=== PATIENT | female | born 1970 | race Caucasian/White ===

== ENCOUNTER → 2016-07-14 | Outpatient (CLI) | payer OTHER ==
[~2016-07-14] MED LIST: ALBU1AER9 INH; ASCO10003 PO; ASPI-435 PO; B-CO1CAP17 PO; BECL0.072 INH; BETA2500 PO; CHOL1TAB42 PO; FEXO1TAB46 PO; IBUP-103 PO; MNC100 PO; MONT1TAB3 PO; NITR-5 PO; NXM/40 PO; PRLSR20 PO; QVRINH80; RANI300T2 PO; SENNTAB23 PO; SPIR25TA PO; SPIR50TA2 PO; VITA10004 PO; VNTHFA/IN INH; [UNRECOGNIZED DRUG - OTHER] PO; vitamin d PO
--- NOTE | 2016-07-14 16:45 | DIAGNOSTIC IMAGING REPORT ---
PA CHEST RADIOGRAPH AND UPRIGHT AND SUPINE AP RADIOGRAPHS OF THE ABDOMEN CLINICAL HISTORY: Right upper quadrant abdominal pain. COMPARISON STUDY: Chest radiograph April 01, [address] of the abdomen and pelvis September 23, 2014. FINDINGS: Lung volumes are normal. Lungs are clear. There is no pneumothorax or pleural effusion. Cardiac size is normal. Mediastinal contours are normal. There is no free air. The bowel gas pattern is normal. There is a mild to moderate amount of stool within the colon. IMPRESSION: 1. No free air or evidence of bowel obstruction. 2. No acute cardiopulmonary findings. Electronically signed by: Mack Hawkins M.D. 07/14/2016 4:44 PM Dictated Date/Time: 07/14/2016 4:40 PM
== END | disposition home or self-care (01) ==
LOC: C.RADPV 16:11
PROVIDERS: ATTEND Family Medicine
DX: R10.11 Right upper quadrant pain (principal)

== ENCOUNTER 2016-07-17 11:37 | Emergency (ER) | payer OTHER ==
[~2016-07-17] VITALS: Ht 165.1 cm; Wt 100.9 kg
[~2016-07-17 11:37] MED LIST changes: -ASPI-435 PO; -CHOL1TAB42 PO; -FEXO1TAB46 PO; -IBUP-103 PO; -MONT1TAB3 PO; -NITR-5 PO; -PRLSR20 PO; -QVRINH80; -RANI300T2 PO; -SENNTAB23 PO; -SPIR25TA PO; -SPIR50TA2 PO; -VITA10004 PO; -VNTHFA/IN INH
[2016-07-17 11:40] VITALS: Ht 165.1 cm; Wt 100.9 kg
[2016-07-17] MEDS ORDERED: QVRINH80 (12:01)
[2016-07-17] MEDS ORDERED: VNTHFA/IN INH (12:01)
[2016-07-17] MEDS ORDERED: SPIR50TA2 PO (12:03)
[2016-07-17] MEDS ORDERED: SPIR25TA PO (12:03)
[2016-07-17] MEDS ORDERED: MONT1TAB3 PO (12:03)
[2016-07-17] MEDS ORDERED: FEXO1TAB46 PO (12:03)
[2016-07-17] MEDS ORDERED: RANI300T2 PO (12:03)
[2016-07-17] MEDS ORDERED: VITA10004 PO (12:03)
[2016-07-17] MEDS ORDERED: ASPI-435 PO (12:03)
[2016-07-17 12:25] LABS: URINE APPEARANCE CLEAR (CLEAR); URINE BILIRUBIN NEG (NEG); URINE COLOR YELLOW; URINE EPITHELIAL CELL AUTO 20-30 /lpf (0-5); URINE NITRITE NEG (NEG); URINE PH 5.5 (4.5-7.5); URINE SPECIFIC GRAVITY 1.024 (1.000-1.030); UROBILINOGEN NEG (NEG); ZZUR CULT IF INDIC CLEAN CATCH NO
[2016-07-17 12:29] LABS: MANUAL MICROSCOPIC REQUIRED? NO; REVIEW REQ? NO
[2016-07-17] MEDS ORDERED: ONDANSETRON INJ 2 MG/ML 2 ML VIAL IV STA (12:34)
[2016-07-17] MEDS ORDERED: OPTIRAY 320 IV PRN (12:45)
[2016-07-17 14:03] LABS: ALT/SGPT 18 U/L (12-78); AST/SGOT 9 U/L (15-37); BLOOD UREA NITROGEN 11 mg/dl (7-18); BUN/CREATININE RATIO 15.3 (10-20); CALCIUM 8.9 mg/dl (8.5-10.1); CARBON DIOXIDE 32 mmol/L (21-32); CHLORIDE 105 mmol/L (98-107); CREATININE 0.73 mg/dl (0.60-1.20); GLUCOSE 129 mg/dl (70-99); POTASSIUM 4.1 mmol/L (3.5-5.1); SODIUM 140 mmol/L (136-145)
[2016-07-17 14:06] LABS: ALKALINE PHOSPHATASE 102 U/L (45-117)
[2016-07-17 14:14] LABS: HEMATOCRIT 38.4 % (37-47); MEAN CELL VOLUME 89.3 fL (80-100); MEAN CORPUSCULAR HEMOGLOBIN 31.2 pg (25-34); MEAN CORPUSCULAR HGB CONC 34.9 g/dl (32-36); MEAN PLATELET VOLUME 9.7 fL (7.4-10.4); PLATELET COUNT 288 K/uL (130-400); WHITE BLOOD COUNT 10.78 K/uL (4.8-10.8)
[2016-07-17 14:37] LABS: BASOPHIL % 0.9 %; COMPLETE YES; EOSINOPHIL % 1.7 %; LYMPH ABS # 2.16 K/uL (1.2-3.4); NEUTROPHILS % 74.8 %
--- NOTE | 2016-07-17 15:40 | DIAGNOSTIC IMAGING REPORT ---
CT ABD/PELVIS IV AND ORAL CONT CLINICAL HISTORY: Right-sided abdominal pain. COMPARISON STUDY: 09/23/2014 TECHNIQUE: Following the IV administration of 118 mL of Optiray-320, CT scan of the abdomen and pelvis was performed from the lung bases to the proximal femurs. Images are reviewed in the axial, sagittal, and coronal planes. IV contrast was administered without complication. CT DOSE: 821.68 mGy.cm FINDINGS: Lower chest: There are minor basilar atelectatic changes. Liver: There is mild hepatic steatosis. No focal masses are visualized. The portal vein appears patent. Gallbladder: Unremarkable. Spleen: Normal in size and attenuation. Pancreas: Unremarkable. Adrenal glands: Unremarkable. Kidneys: There is symmetric renal cortical enhancement. The kidneys are normal in size without hydronephrosis. Bowel: There are no transition zones indicate bowel obstruction. The proximal appendix appears normal. The distal appendix is borderline dilated measuring 7 mm, but there are no periappendiceal inflammatory changes.. There is no acute diverticulitis. Peritoneum: There is no intraperitoneal free air or abdominal ascites. This tiny fat-containing umbilical hernia Vasculature: The abdominal aorta is normal in course and caliber. Adenopathy: None. Pelvic viscera: The uterus appears surgically absent Skeletal structures: No destructive osseous lesions are seen. IMPRESSION: 1. No evidence of bowel obstruction. No evidence of free air 2. No evidence of acute diverticulitis 3. The proximal appendix appears normal. There is borderline dilatation of the distal appendix which measures 7 mm. There are no periappendiceal inflammatory changes. This likely represents a normal variation. Close clinical follow-up is recommended. Electronically signed by: Bhaskar Underwood M.D. 07/17/2016 3:38 PM Dictated Date/Time: 07/17/2016 3:30 PM
[2016-07-17] MEDS ORDERED: NITR-5 PO (16:15)
[2016-07-17 16:29] VITALS: BP 131/72; PULSE 68; TEMP 36.7; O2SAT 96
--- NOTE | 2016-07-17 18:23 | EMERGENCY ROOM VISIT NOTE ---
History Report prepared by Gunnar: Serenity Garcia Under the Supervision of: Dr. Jas Morgan M.D. First contact with patient: 12:23 Chief Complaint: URINARY SYMPTOMS Stated Complaint: BACK PAIN,BURNING AND FREQUENT URINATION Nursing Triage Summary: Pt states. "I had a urine culture on Tue. I am having low back pain. I am having urinary freq and burning. [facility] sent me here for a kidney stones work up. My UA showed blood and three kinds of bacteria." + hx of kidney stones. Pain worse in left flank. Nausea. States initially went to PCP on Tue for "reflux". History of Present Illness The patient is a 46 year old female who presents to the Emergency Room with complaints of persistent urinary symptoms for the past 2 days. She reports for the past 3 weeks she has experienced RUQ abdominal pain and constipation. She also noticed that when she would eat something, she would burp and whatever she ate, would "come back up", similar to acid reflux. She states the constipation was unusual for her as she normally has no problem moving her bowels daily. The patient still has her gallbladder and appendix. She no longer gets her menstrual period. She saw her primary care physician at [facility] 2 days ago for the reflux type symptoms and states she had an abdominal X -Ray that showed mild constipation. She also had a urinalysis that showed " trace blood". Her bowels eventually began moving again, but she notes the consistency of her stool is "runny". The patient reports the same day she saw her doctor, she started experiencing some low back pain. She does not think she' s had a fever but reports last night she felt "hot all over". Last night, her symptoms also worsened and she developed some pain on urination with frequency and urgency, so she called her doctor this morning and was referred to the ED for a possible kidney stone. The patient admits to a history of kidney stones but states she is unsure if her current pain feels similar to a stone. She admits to some nausea but has not vomited. 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 A total of 10 systems reviewed and were otherwise negative. Past Medical & Surgical Medical Problems: (1) Asthma (2) TMJ surgery Family History Cancer Diabetes mellitus Kidney disease Kidney stones Social History Smoking Status: Never Smoker Alcohol Use: none Drug Use: none Marital Status: Housing Status: lives with family Occupation Status: employed Current/Historical Medications Scheduled Albuterol Hfa (Ventolin Hfa), 2-4 PUFFS INH Q6H Aspirin (Aspirin 81), 81 MG PO DAILY Fexofenadine Hcl (Geri), 180 MG PO DAILY Montelukast Sodium (Singulair), 10 MG PO DAILY Nitrofurantoin Monohyd Macrocr (Macrobid), 100 MG PO BID Ranitidine (Zantac), 300 MG PO DAILY Spironolactone (Aldactone), 50 MG PO QAM Spironolactone (Aldactone), 25 MG PO QPM Vitamin E (Vitamin E), 5,000 MG PO DAILY Miscellaneous Medications Beclomethasone Dip (Qvar) Allergies Coded Allergies: Meloxicam (Verified Allergy, Intermediate, SHORTNESS OF BREATH, 07/17/16) Paroxetine (Verified Allergy, Intermediate, SHORTNESS OF BREATH, 07/17/16) Physical Exam Vital Signs Date Time Temp Pulse Resp B/P Pulse Ox O2 Delivery O2 Flow Rate FiO2 07/17/16 16:29 36.7 68 16 131/72 96 07/17/16 16:29 68 16 131/72 96 Room Air 07/17/16 15:47 74 16 126/68 96 Room Air 07/17/16 13:50 64 16 136/86 97 Room Air 07/17/16 11:40 36.7 76 18 148/83 96 Room Air Physical Exam Constitutional: Vital signs reviewed. Eyes: Pupils are equal round reactive to light. Conjunctiva are noninjected. ENT: Pharynx is clear without erythema or exudate. Mucous membranes are moist. Neck supple without meningeal signs. Respiratory: Clear to auscultation bilaterally. Breath sounds are equal bilaterally. Cardiovascular: Regular rate and rhythm. No rubs or gallops. GI: Soft, nondistended. Right suprapubic lower abdominal tenderness, no guarding. Bowel sounds are present. Musculoskeletal: No peripheral edema. No lower extremity tenderness. No CVA tenderness. Integumentary: No cyanosis. Neurological: The patient is awake and alert. No focal deficits. Psychiatric: Normal affect. Medical Decision & Procedures ER Provider Diagnostic Interpretation: This CT scan was reviewed and interpreted by the radiologist and reviewed by myself. CT ABD/PELVIS IV AND ORAL CONT CLINICAL HISTORY: Right-sided abdominal pain. COMPARISON STUDY: 09/23/2014 TECHNIQUE: Following the IV administration of 118 mL of Optiray-320, CT scan of the abdomen and pelvis was performed from the lung bases to the proximal femurs. Images are reviewed in the axial, sagittal, and coronal planes. IV contrast was administered without complication. CT DOSE: 821.68 mGy.cm FINDINGS: Lower chest: There are minor basilar atelectatic changes. Liver: There is mild hepatic steatosis. No focal masses are visualized. The portal vein appears patent. Gallbladder: Unremarkable. Spleen: Normal in size and attenuation. Pancreas: Unremarkable. Adrenal glands: Unremarkable. Kidneys: There is symmetric renal cortical enhancement. The kidneys are normal in size without hydronephrosis. Bowel: There are no transition zones indicate bowel obstruction. The proximal appendix appears normal. The distal appendix is borderline dilated measuring 7 mm, but there are no periappendiceal inflammatory changes.. There is no acute diverticulitis. Peritoneum: There is no intraperitoneal free air or abdominal ascites. This tiny fat-containing umbilical hernia Vasculature: The abdominal aorta is normal in course and caliber. Adenopathy: None. Pelvic viscera: The uterus appears surgically absent Skeletal structures: No destructive osseous lesions are seen. IMPRESSION: 1. No evidence of bowel obstruction. No evidence of free air 2. No evidence of acute diverticulitis 3. The proximal appendix appears normal. There is borderline dilatation of the distal appendix which measures 7 mm. There are no periappendiceal inflammatory changes. This likely represents a normal variation. Close clinical follow-up is recommended. Electronically signed by: Bhaskar Underwood M.D. 07/17/2016 3:38 PM Laboratory Results 07/17/16 13:50 Red Blood Count 4.30, Mean Corpuscular Volume 89.3, Mean Corpuscular Hemoglobin 31.2, Mean Corpuscular Hemoglobin Concent 34.9, Mean Platelet Volume 9.7 07/17/16 13:15 Test 07/17/16 11:49 07/17/16 13:15 07/17/16 13:50 Urine Color YELLOW Urine Appearance CLEAR (CLEAR) Urine pH 5.5 (4.5-7.5) Urine Specific [place] 1.024 (1.000-1.030) Urine Protein NEG (NEG) Urine Glucose (UA) NEG (NEG) Urine Ketones NEG (NEG) Urine Occult Blood NEG (NEG) Urine Nitrite NEG (NEG) Urine Bilirubin NEG (NEG) Urine Urobilinogen NEG (NEG) Urine Leukocyte Esterase NEG (NEG) Urine WBC (Auto) 1-5 /hpf (0-5) Urine RBC (Auto) 0-4 /hpf (0-4) Urine Hyaline Casts (Auto) 0 /lpf (0-5) Urine Epithelial Cells (Auto) 20-30 /lpf (0-5) Urine Bacteria (Auto) NEG (NEG) Anion Gap 3.0 mmol/L (3-11) Est Creatinine Clear Calc Drug Dose 112.1 ml/min Estimated GFR () 113.7 Estimated GFR (Non- 98.1 BUN/Creatinine Ratio 15.3 (10-20) Calcium Level 8.9 mg/dl (8.5-10.1) Total Bilirubin 0.2 mg/dl (0.2-1) Direct Bilirubin < 0.1 mg/dl (0-0.2) Aspartate Amino Transf (AST/SGOT) 9 U/L (15-37) Alanine Aminotransferase (ALT/SGPT) 18 U/L (12-78) Alkaline Phosphatase 102 U/L (45-117) Total Protein 7.1 gm/dl (6.4-8.2) Albumin 3.8 gm/dl (3.4-5.0) Lipase 147 U/L (73-393) White Blood Count 10.78 K/uL (4.8-10.8) Red Blood Count 4.30 M/uL (4.2-5.4) Hemoglobin 13.4 g/dL (12.0-16.0) Hematocrit 38.4 % (37-47) Mean Corpuscular Volume 89.3 fL (80-100) Mean Corpuscular Hemoglobin 31.2 pg (25-34) Mean Corpuscular Hemoglobin Concent 34.9 g/dl (32-36) Platelet Count 288 K/uL (130-400) Mean Platelet Volume 9.7 fL (7.4-10.4) RDW Standard Deviation 40.7 fL (36.4-46.3) RDW Coefficient of Variation 12.7 % (11.5-14.5) Neutrophils % (Manual) 74.8 % Lymphocytes % (Manual) 20.0 % Monocytes % (Manual) 2.6 % Eosinophils % (Manual) 1.7 % Basophils % (Manual) 0.9 % Neutrophils # (Manual) 8.06 K/uL (1.4-6.5) Total Absolute Neutrophils 8.06 K/uL (1.4-6.5) Lymphocytes # (Manual) 2.16 K/uL (1.2-3.4) Total Absolute Lymphocytes 2.16 K/uL (1.2-3.4) Monocytes # (Manual) 0.28 K/uL (0.11-0.59) Eosinophils # (Manual) 0.18 K/uL (0-0.5) Basophils # (Manual) 0.10 K/uL (0-0.2) Red Blood Cell Morphology Unremarkable Laboratory results as reviewed by me. Medications Administered Medications (Trade) Dose Ordered Sig/Malou Route Start Time Stop Time Status Last Admin Dose Admin Ondansetron HCl (Zofran Inj) 4 mg NOW STAT IV 07/17/16 12:34 07/17/16 12:35 DC 07/17/16 12:52 4 MG ED Course 1224: The patient was evaluated in room A12. A complete history and physical exam was performed. 1234: Zofran 4 mg IV. 1428: I reevaluated the patient. I let her know her test results. 1610: I reevaluated the patient. She says her pain is mostly in the upper area of her abdomen on her right side. She has no RLQ tenderness to suggest acute appendicitis. I recommended follow up with GI and antibiotic treatment for dysuria. I discussed her other discharge instructions and she verbalized complete understanding and agreement. Medical Decision This is a 46-year-old female who presents with urinary symptoms and abdominal pain. Differential diagnosis includes UTI, pyelonephritis, diverticulitis, appendicitis, colitis, irritable bowel syndrome. I did perform a limited focused review of portions of the patient's old chart on the electronic medical record. The patient had a urine culture on July 14, 2016 that was negative. An X -Ray of the chest and abdomen was unremarkable. I did evaluate the patient as noted above. The patient has had abdominal pain for the past 3 weeks. She states the pain was mostly in the right upper quadrant and left lower quadrant. She does have some suprapubic tenderness and slight right sided tenderness on exam. She also complains of dysuria starting last night. IV access was established. I did order and personally review the patient's urinalysis as described above. I did send a urine culture because her symptoms. I did order and review the patient's blood work as noted in the electronic medical record. She has slight elevation of her white blood cell count but otherwise her labs are unremarkable. I did order a CT of the abdomen and pelvis. I did review the images myself as well as the radiology report as described above. There was some distal dilation of the appendix but no evidence of appendicitis. I did reevaluate the patient. She states that she has some pain in the right upper quadrant but no significant pain in the lower abdomen. She has no tenderness at McBurney's point. Given her symptoms have been going on for 3 weeks and just that she has no pain or tenderness in the right lower quadrant at this time, I feel it unlikely that she has appendicitis. I did discuss the test results with her. The cause of her pain is unclear and it did recommend follow up with her doctor as well as possible referral to gastroenterology. She has had significant dysuria so despite her negative UA and will treat her empirically with antibiotics. She was discharged with a prescription for Macrobid and given return instructions as outlined below. Impression Primary Impression: RUQ abdominal pain Additional Impressions: Suprapubic abdominal pain Dysuria Scribe Attestation The scribe's documentation has been prepared under my direct and personally reviewed by me in its entirety. I confirm that the note above accurately reflects all work, treatment, procedures, and medical decision making performed by me. Departure Information Dispostion Home / Self-Care Prescriptions Nitrofurantoin Monohyd Macrocr (Macrobid) 100 Mg Cap 100 MG PO BID, #14 CAP Prov: Jas Morgan M.D. 07/17/16 Referrals Marjan Kuhn M.D. (PCP) Patient Instructions [facility] Problem Qualifiers
== END 2016-07-17 16:31 | disposition home or self-care (01) ==
LOC: C.EDB 11:39 → C.EDA 16:31
DX: R10.11 Right upper quadrant pain (principal); R10.30 Lower abdominal pain, unspecified; R33.9 Retention of urine, unspecified; R30.0 Dysuria; J45.909 Unspecified asthma, uncomplicated; Z80.9 Family history of malignant neoplasm, unspecified; Z83.3 Family history of diabetes mellitus; Z84.1 Family history of disorders of kidney and ureter; Z79.82 Long term (current) use of aspirin; Z79.899 Other long term (current) drug therapy

== ENCOUNTER → 2016-08-14 | Outpatient (CLI) | payer OTHER ==
[~2016-08-14] MED LIST changes: -ALBU1AER9 INH; -ASCO10003 PO; +ASPI-435 PO; -B-CO1CAP17 PO; -BECL0.072 INH; -BETA2500 PO; +CHOL1TAB42 PO; +FEXO1TAB46 PO; +IBUP-103 PO; -MNC100 PO; +MONT1TAB3 PO; +NITR-5 PO; -NXM/40 PO; +PRLSR20 PO; +QVRINH80; +RANI300T2 PO; +SENNTAB23 PO; +SPIR25TA PO; +SPIR50TA2 PO; +VITA10004 PO; +VNTHFA/IN INH; -[UNRECOGNIZED DRUG - OTHER] PO; -vitamin d PO
[2016-08-14 13:09] LABS: BASO % 0.5 %; BASO ABS # 0.05 K/uL (0-0.2); COMPLETE YES; EOS % 3.3 %; HEMATOCRIT 41.5 % (37-47); IG% 0.5 %; LYMPH % 23.5 %; LYMPH ABS # 2.41 K/uL (1.2-3.4); MEAN CELL VOLUME 91.8 fL (80-100); MEAN CORPUSCULAR HEMOGLOBIN 30.1 pg (25-34); MEAN CORPUSCULAR HGB CONC 32.8 g/dl (32-36); MEAN PLATELET VOLUME 10.5 fL (7.4-10.4); MONO % 4.9 %; NEUT % 67.3 %; PLATELET COUNT 308 K/uL (130-400); RED BLOOD COUNT 4.52 M/uL (4.2-5.4); WHITE BLOOD COUNT 10.24 K/uL (4.8-10.8)
[2016-08-14 13:28] LABS: BLOOD UREA NITROGEN 14 mg/dl (7-18); BUN/CREATININE RATIO 16.6 (10-20); CALCIUM 8.7 mg/dl (8.5-10.1); CARBON DIOXIDE 27 mmol/L (21-32); CHLORIDE 106 mmol/L (98-107); CREATININE 0.84 mg/dl (0.60-1.20); GLUCOSE 122 mg/dl (70-99); SODIUM 140 mmol/L (136-145)
== END | disposition home or self-care (01) ==
LOC: C.LABPVFM 08:41
PROVIDERS: ATTEND Family Medicine
DX: R73.01 Impaired fasting glucose (principal); R10.9 Unspecified abdominal pain

== ENCOUNTER 2016-08-22 08:45 | Emergency (ER) | payer OTHER ==
[~2016-08-22] VITALS: Ht 165.1 cm; Wt 103.0 kg
[~2016-08-22 08:45] MED LIST changes: -CHOL1TAB42 PO; -IBUP-103 PO; -PRLSR20 PO; -SENNTAB23 PO
[2016-08-22 08:48] VITALS: TEMP 37; Ht 165.1 cm; Wt 103.0 kg
[2016-08-22] MEDS ORDERED: IBUP-103 PO (08:59)
[2016-08-22] MEDS ORDERED: DiphenhydrAMINE HCL 50 MG/ML VIAL IV STA (09:09)
[2016-08-22] MEDS ORDERED: SODIUM CHLORIDE 0.9% 500ML 500 ML IV STA (09:09)
[2016-08-22] MEDS ORDERED: KETOROLAC TROMETHAMINE 30 MG/ML VIAL IV STA (09:09)
[2016-08-22] MEDS ORDERED: CHOL1TAB42 PO (09:11)
[2016-08-22] MEDS ORDERED: SENNTAB23 PO (09:11)
[2016-08-22] MEDS ORDERED: PRLSR20 PO (09:11)
[2016-08-22 09:51] LABS: HEMATOCRIT 36.7 % (37-47); MEAN CELL VOLUME 91.5 fL (80-100); MEAN CORPUSCULAR HEMOGLOBIN 31.2 pg (25-34); MEAN CORPUSCULAR HGB CONC 34.1 g/dl (32-36); MEAN PLATELET VOLUME 9.2 fL (7.4-10.4); PLATELET COUNT 271 K/uL (130-400); RED BLOOD COUNT 4.01 M/uL (4.2-5.4); WHITE BLOOD COUNT 9.16 K/uL (4.8-10.8)
--- NOTE | 2016-08-22 10:05 | DIAGNOSTIC IMAGING REPORT ---
CT OF THE HEAD WITHOUT CONTRAST CLINICAL HISTORY: Headache. COMPARISON STUDY: Head CT and MRI of the brain December 23, 2013. CT DOSE: 537.48 mGy.cm TECHNIQUE: Helical axial images of the head were obtained without IV contrast. Automated exposure control was utilized for the study. FINDINGS: No acute intracranial hemorrhage, midline shift or mass effect is present. Ventricular system is normal. Basilar cisterns are patent. There are no extra-axial collections. Oliveira-white differentiation is maintained. There are no findings to suggest acute dural sinus thrombosis or acute territorial infarct. 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 Mastoid air cells and visualized portions of the sinuses are clear. There are no calvarial abnormalities. IMPRESSION: No acute intracranial findings. Electronically signed by: Mack Hawkins M.D. 08/22/2016 10:04 AM Dictated Date/Time: 08/22/2016 9:59 AM
[2016-08-22 10:09] LABS: BUN/CREATININE RATIO 16.9 (10-20); CREATININE 0.77 mg/dl (0.60-1.20); POTASSIUM 4.1 mmol/L (3.5-5.1)
[2016-08-22 10:22] VITALS: BP 118/50; PULSE 62; O2SAT 99
[2016-08-22 10:22] LABS: BASO ABS # 0.24 K/uL (0-0.2); BASOPHIL % 2.6 %; COMPLETE YES; LYMPH ABS # 2.15 K/uL (1.2-3.4); LYMPHOCYTE % 23.5 %; NEUTROPHILS % 66.1 %
--- NOTE | 2016-08-22 14:06 | EMERGENCY ROOM VISIT NOTE ---
History Report prepared by Gunnar: Regino Patino Under the Supervision of: Dr. Sj Fuentes D.O. First contact with patient: 08:55 Chief Complaint: HEADACHE Stated Complaint: MOONEY X 6 DAYS, FEVER History of Present Illness The patient is a 46 year old female who presents to the Emergency Room with complaints of a persistent right-sided headache that started 5 days ago. She says that she was sitting at her computer at home when the pain came on suddenly. The patient says that the pain "shocked" her. The patient states that she ran to the bathroom when the pain came on, and took Tylenol. She says that the pain has not worsened over the past 5 days. The patient notes that last night, she had a hot spot around the area of her headache, and her says that the spot was hot to the touch. The patient also had the same hot spot this morning. She says that she had been taking Tylenol and Ibuprofen for the headache, but her pain was not being relieved last night. She says that her right-sided headache was radiating down the right side of her face and into her neck last night as well. The patient called the nurse line, and was recommended to be seen for the headache. The patient did take a Vicodin last night, which has lessened the pain. She notes that both her legs have felt weak, and feel "like jelly". The patient also adds that she has had intermittent jerking of her legs that started prior to the headache. She denies any changes in vision, fevers, arm weakness, back pain, or recent trauma or falls. The patient has a history of GERD, and has a prior surgical history of a hysterectomy. Source of History: patient, spouse/significant other Onset: 5 days ago Position: head (right side) Quality: other (headache) Timing: other (persistent) Modifying Factors (Relieving): other (Vicodin) Associated Symptoms: + weakness (of legs, denies arm weakness), No back pain , No fevers Note: Associated symptoms: Headache was radiating down left side of face and into neck last night. Intermittent jerking of legs. Hot spot last night and this morning around headache area. Denies changes in vision, recent trauma or falls. Review of Systems See HPI for pertinent positives & negatives. A total of 10 systems reviewed and were otherwise negative. Past Medical & Surgical Medical Problems: (1) Asthma (2) TMJ surgery Family History Cancer Diabetes mellitus Kidney disease Kidney stones Social History Smoking Status: Never Smoker Alcohol Use: none Drug Use: none Marital Status: Housing Status: lives with family Occupation Status: employed Current/Historical Medications Scheduled Albuterol Hfa (Ventolin Hfa), 2-4 PUFFS INH Q6H Aspirin (Aspirin 81), 81 MG PO DAILY Cholecalciferol (Vitamin D), 1 TAB PO DAILY Fexofenadine Hcl (Geri), 180 MG PO DAILY Montelukast Sodium (Singulair), 10 MG PO DAILY Omeprazole (Prilosec), 40 MG PO DAILY Ranitidine (Zantac), 300 MG PO DAILY Spironolactone (Aldactone), 50 MG PO QAM Spironolactone (Aldactone), 25 MG PO QPM Scheduled PRN Ibuprofen Tab (Advil), 200-600 MG PO Q4H PRN for Headache Sennosides-Docusate Sodium (Stool Softener), 1 TAB PO DAILY PRN for Constipation Miscellaneous Medications Beclomethasone Dip (Qvar) Allergies Coded Allergies: Meloxicam (Verified Allergy, Intermediate, SHORTNESS OF BREATH, 08/22/16) Paroxetine (Verified Allergy, Intermediate, SHORTNESS OF BREATH, 08/22/16) Physical Exam Vital Signs Date Time Temp Pulse Resp B/P Pulse Ox O2 Delivery O2 Flow Rate FiO2 08/22/16 10:22 62 18 118/50 99 Room Air 08/22/16 08:48 37.0 72 20 127/69 98 Room Air Physical Exam GENERAL: sitting up in bed, alert, well appearing, well nourished, no distress, non-toxic EYE EXAM: normal conjunctiva, PERRL and EOM's intact OROPHARYNX: no exudate, no erythema, lips, buccal mucosa, and tongue normal and mucous membranes are moist NECK: supple, no nuchal rigidity, no adenopathy, non-tender. Negative Brudzinski 's. LUNGS: Clear to auscultation. Normal chest wall mechanics HEART: no murmurs, S1 normal and S2 normal ABDOMEN: abdomen soft, non-tender, normo-active bowel sounds, no masses, no rebound or guarding. BACK: Back is symmetrical on inspection and there is no deformity, no midline tenderness, no CVA tenderness. SKIN: no rashes and no bruising UPPER EXTREMITIES: upper extremities are grossly normal. LOWER EXTREMITIES: No pitting edema. NEURO EXAM: Normal sensorium, cranial nerves II-XII intact, normal speech, no weakness of arms, no weakness of legs. No drift. Finger to nose intact. Gross sensation intact. Rapid alternating movements of upper extremities intact. Medical Decision & Procedures ER Provider Diagnostic Interpretation: Radiology results as stated below per my review and the radiologist's interpretation: CT OF THE HEAD WITHOUT CONTRAST CLINICAL HISTORY: Headache. COMPARISON STUDY: Head CT and MRI of the brain December 23, 2013. CT DOSE: 537.48 mGy.cm TECHNIQUE: Helical axial images of the head were obtained without IV contrast. Automated exposure control was utilized for the study. FINDINGS: No acute intracranial hemorrhage, midline shift or mass effect is present. Ventricular system is normal. Basilar cisterns are patent. There are no extra-axial collections. Oliveira-white differentiation is maintained. There are no findings to suggest acute dural sinus thrombosis or acute territorial infarct. 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 Mastoid air cells and visualized portions of the sinuses are clear. There are no calvarial abnormalities. IMPRESSION: No acute intracranial findings. Electronically signed by: Mack Hawkins M.D. 08/22/2016 10:04 AM Dictated Date/Time: 08/22/2016 9:59 AM Laboratory Results 08/22/16 09:40 Red Blood Count 4.01, Mean Corpuscular Volume 91.5, Mean Corpuscular Hemoglobin 31.2, Mean Corpuscular Hemoglobin Concent 34.1, Mean Platelet Volume 9.2 08/22/16 09:40 Test 08/22/16 09:40 White Blood Count 9.16 K/uL (4.8-10.8) Red Blood Count 4.01 M/uL (4.2-5.4) Hemoglobin 12.5 g/dL (12.0-16.0) Hematocrit 36.7 % (37-47) Mean Corpuscular Volume 91.5 fL (80-100) Mean Corpuscular Hemoglobin 31.2 pg (25-34) Mean Corpuscular Hemoglobin Concent 34.1 g/dl (32-36) Platelet Count 271 K/uL (130-400) Mean Platelet Volume 9.2 fL (7.4-10.4) RDW Standard Deviation 42.5 fL (36.4-46.3) RDW Coefficient of Variation 12.8 % (11.5-14.5) Neutrophils % (Manual) 66.1 % Lymphocytes % (Manual) 23.5 % Monocytes % (Manual) 7.8 % Basophils % (Manual) 2.6 % Neutrophils # (Manual) 6.05 K/uL (1.4-6.5) Total Absolute Neutrophils 6.05 K/uL (1.4-6.5) Lymphocytes # (Manual) 2.15 K/uL (1.2-3.4) Total Absolute Lymphocytes 2.15 K/uL (1.2-3.4) Monocytes # (Manual) 0.71 K/uL (0.11-0.59) Basophils # (Manual) 0.24 K/uL (0-0.2) Red Blood Cell Morphology Unremarkable Anion Gap 6.0 mmol/L (3-11) Est Creatinine Clear Calc Drug Dose 107.5 ml/min Estimated GFR () 106.6 Estimated GFR (Non- 91.9 BUN/Creatinine Ratio 16.9 (10-20) Calcium Level 8.0 mg/dl (8.5-10.1) Laboratory results per my review. Medications Administered Medications (Trade) Dose Ordered Sig/Malou Route Start Time Stop Time Status Last Admin Dose Admin Sodium Chloride (Nss 500ml) 500 ml @ 999 mls/hr Q31M STAT IV 08/22/16 09:09 08/22/16 09:39 DC 08/22/16 09:00 999 MLS/HR Ketorolac Tromethamine (Toradol Inj) 30 mg NOW STAT IV 08/22/16 09:09 08/22/16 09:11 DC 08/22/16 09:38 30 MG Diphenhydramine HCl (Benadryl Inj) 25 mg NOW STAT IV 08/22/16 09:09 08/22/16 09:11 DC 08/22/16 09:38 25 MG ED Course ED COURSE: Vital signs were reviewed and showed normal vitals. The patients medical record was reviewed The above diagnostic studies were performed and reviewed. ED treatments and interventions as stated above. 0857: The patient was evaluated in room A3. A complete history and physical examination was performed. 0909: Ordered Benadryl Inj 25 mg IV, Toradol Inj 30 mg IV, NSS 500 ml @ 999 mls/ hr IV. 1030: Upon reevaluation, the patient is significantly improved. I discussed my findings with the patient and she understands and agrees with the treatment plan. Based on the patients age, coexisting illnesses, exam and lab findings the decision to treat as an outpatient was made. The patient remained stable while under my care. The patient appeared well at the time of discharge. Medical Decision Differential Diagnosis includes but is not limited to headache, tension headache , cluster headache, migraine, subarachnoid hemorrhage, meningitis, mass, central venous thrombus, concussion, trauma and epidural/subdural hemorrhage. Patient is a 46-year-old female who presents to the ER for headache which is been present for the past 3 days. She notes that it starts from the top right posterior portion of her head and radiates anteriorly to her face. She took a Vicodin last night and had significant improvement of her pain. She is completely neurologically intact. No other complaints. No fevers. No signs of meningitis or encephalitis on exam. CT head was negative. She was given IV normal saline, Toradol and Benadryl and had near complete resolution of her headache. She remained completely neurologically intact. Patient was discharged follow with her primary care doctor. I do not believe this to be a subarachnoid hemorrhage although this was discussed with the patient since she has no focal neuro deficits with an unremarkable CT. Discussed with Pt concerning signs and symptoms to watch out for. Pt was instructed to follow up with their PCP and discussed with the patient their option to return to the ED at anytime for persistent or worsening symptoms. The appropriate anticipatory guidance and out-patient management, including indications for return to the emergency department, were explained at length to the patient and understood. Impression Primary Impression: Headache Scribe Attestation The scribe's documentation has been prepared under my direction and personally reviewed by me in its entirety. I confirm that the note above accurately reflects all work, treatment, procedures, and medical decision making performed by me. Departure Information Dispostion Home / Self-Care Referrals Marjan Kuhn M.D. (PCP) Forms HOME CARE DOCUMENTATION FORM, IMPORTANT VISIT INFORMATION Patient Instructions Headache Pain, [facility] Additional Instructions Please follow up with your primary care doctor with in the next 24 hours. Any worsening of your symptoms, please return to the ED immediately. This includes fevers greater than 100.4, stiff neck, change in vision, weakness in arms or legs, confusion, severe worsening of your headache, or any other concerning signs or symptoms from your standpoint. Please do not drive, work, operate heavy machinery for the next 12 hours Problem Qualifiers Primary Impression: Headache Headache type: unspecified Headache chronicity pattern: acute headache Intractability: not intractable Qualified Codes: R51 - Headache
== END 2016-08-22 10:45 | disposition home or self-care (01) ==
LOC: C.EDB 08:46 → C.EDA 10:45
DX: R51 Headache (principal); K21.9 Gastro-esophageal reflux disease without esophagitis; M62.81 Muscle weakness (generalized); J45.909 Unspecified asthma, uncomplicated; Z79.82 Long term (current) use of aspirin

== ENCOUNTER → 2016-09-07 | Outpatient (CLI) | payer OTHER ==
[~2016-09-07] MED LIST changes: +CHOL1TAB42 PO; +IBUP-103 PO; -NITR-5 PO; +PRLSR20 PO; +SENNTAB23 PO; -VITA10004 PO
[2016-09-07 17:43] LABS: BASO % 0.6 %; BASO ABS # 0.06 K/uL (0-0.2); COMPLETE YES; EOS % 4.5 %; HEMATOCRIT 39.6 % (37-47); IG% 0.4 %; LYMPH % 23.7 %; LYMPH ABS # 2.42 K/uL (1.2-3.4); MEAN CELL VOLUME 91.9 fL (80-100); MEAN CORPUSCULAR HEMOGLOBIN 29.7 pg (25-34); MEAN CORPUSCULAR HGB CONC 32.3 g/dl (32-36); MEAN PLATELET VOLUME 10.4 fL (7.4-10.4); MONO % 8.2 %; NEUT % 62.6 %; PLATELET COUNT 294 K/uL (130-400); RED BLOOD COUNT 4.31 M/uL (4.2-5.4); WHITE BLOOD COUNT 10.22 K/uL (4.8-10.8)
[2016-09-08 06:20] LABS: ESTIMATED AVERAGE GLUCOSE 123 mg/dl; HA1C FLAG Normal (Normal)
== END | disposition home or self-care (01) ==
LOC: C.LABPVFM 11:41
PROVIDERS: ATTEND Family Medicine
DX: R42 Dizziness and giddiness (principal); R25.8 Other abnormal involuntary movements; R20.9 Unspecified disturbances of skin sensation

== ENCOUNTER → 2016-10-09 | Outpatient (CLI) | payer OTHER | END | disposition home or self-care (01) | LOC: C.LABPVFM 08:39 | PROVIDERS: ATTEND Internal Medicine Gastroenterology | DX: K59.00 Constipation, unspecified (principal) ==

== ENCOUNTER → 2017-03-29 | Outpatient (CLI) | payer OTHER ==
--- NOTE | 2017-03-29 17:04 | EEG Procedure Note ---
EEG Procedure Note Date of Service Mar 29, 2017. Start / End Times Start Time: 2:25 PM End Time: 2:45 PM Referring Physician Ty Jackson History This is a 46-year-old female with episodes of myoclonus. EEG for further evaluation of possible seizure etiology. Home Medication List Scheduled Albuterol Hfa (Ventolin Hfa), 2-4 PUFFS INH Q6H Aspirin (Aspirin 81), 81 MG PO DAILY Cholecalciferol (Vitamin D), 1 TAB PO DAILY Fexofenadine Hcl (Geri), 180 MG PO DAILY Montelukast Sodium (Singulair), 10 MG PO DAILY Omeprazole (Prilosec), 40 MG PO DAILY Ranitidine (Zantac), 300 MG PO DAILY Spironolactone (Aldactone), 50 MG PO QAM Spironolactone (Aldactone), 25 MG PO QPM Scheduled PRN Ibuprofen Tab (Advil), 200-600 MG PO Q4H PRN for Headache Sennosides-Docusate Sodium (Stool Softener), 1 TAB PO DAILY PRN for Constipation Miscellaneous Medications Beclomethasone Dip (Qvar) Description This is a 21 electrode EEG with a single channel dedicated to limited EKG. The electrodes were placed in accordance with the International 10-20 system. At the start of the recording the patient was in an awake state. Background was well organized and composed of symmetric mixed alpha and beta frequencies. There was a symmetric well-formed moderate amplitude 9-10 Hz posterior dominant rhythm that was reactive to eye opening and closure. Hyperventilation was not done. Intermittent photic stimulation at various frequencies produced no abnormalities. Sleep was indicated by vertex waves and symmetric sleep spindles Interpretation This is a normal awake and asleep routine EEG. There was no electrographic seizures or epileptiform discharges. Clinical Correlation A normal EEG does not rule out epilepsy if there is a strong clinical suspicion.
== END | disposition home or self-care (01) ==
LOC: C.NEUR 14:08
PROVIDERS: ATTEND Psychiatry & Neurology Neurology
DX: G25.3 Myoclonus (principal)

== ENCOUNTER → 2017-03-29 | Outpatient (CLI) | payer OTHER | END | disposition home or self-care (01) | LOC: C.LABPVFM 13:25 | PROVIDERS: ATTEND Family Medicine | DX: J06.9 Acute upper respiratory infection, unspecified (principal); R35.0 Frequency of micturition ==

== ENCOUNTER → 2017-08-24 | Outpatient (CLI) | payer OTHER | END | disposition home or self-care (01) | LOC: C.LABPVFM 10:59 | PROVIDERS: ATTEND Family Medicine | DX: M54.5 Low back pain (principal) ==